=== PATIENT | male | born 1960 | race Caucasian/White ===

== ENCOUNTER 2016-09-17 02:18 | Emergency (ER) | payer OTHER ==
[~2016-09-17] VITALS: Ht 182.9 cm; Wt 108.9 kg
[~2016-09-17 02:18] MED LIST: ASPI-247; CAR125T; LISI-708; [UNRECOGNIZED DRUG - CODE]
[2016-09-17] MEDS ORDERED: PROMETHAZINE HCL 25 MG/ML 1ML IV ONE (03:00)
[2016-09-17 03:24] LABS: Basophils # (auto) 0.1 uL; Basophils % (auto) 0.6 % (0.0-2.0); DEFINITIVE VIEW TRANSMISSION; Eosinophils # (auto) 0.1 uL; Eosinophils % (auto) 0.6 % (0.0-7.0); Hemoglobin 15.9 g/dL (13.5-17.5); Lymphocytes # (auto) 1.7 uL; Lymphocytes % (auto) 14.4 % (10.0-50.0); Mean Corpuscular Hgb Conc. 31.1 g/dL (32.0-36.0); Mean Corpuscular Volume 86.7 fL (80.0-100.0); Mean Platelet Volume 8.9 fL (7.4-10.4); Monocytes # (auto) 1.4 uL; Monocytes % (auto) 11.7 % (0.0-12.0); Neutrophils # (auto) 8.6 uL; Neutrophils % (auto) 72.7 % (37.0-80.0); Platelet Count (auto) 399 10^3/uL (140-450); Red Cell Distribution Width 16.6 % (11.6-16.0); White Blood Cell 11.8 10^3/uL (4.4-10.8)
[2016-09-17 03:28] LABS: Albumin 3.4 g/dL (3.4-5.0); BUN/Creatinine Ratio 9.7; Calcium 8.7 mg/dL (8.5-10.1); Magnesium 2.2 mg/dL (1.6-2.6); Potassium 5.5 mmol/L (3.5-5.1)
[2016-09-17 03:31] LABS: Bilirubin, Total 2.5 mg/dL (0.2-1.0); Total Protein 6.3 g/dL (6.4-8.2)
[2016-09-17 03:45] LABS: B-Type Natriuretic Peptide 2463.38 pg/mL (0-100); Temperature: 22.7 C (20.0-25.0)
[2016-09-17] MEDS ORDERED: LORazepam 2MG/ML-1ML VIAL IV ONE (04:15)
[2016-09-17] MEDS ORDERED: FUROSEMIDE 20 MG/2 ML VIAL IV ONE (04:15)
[2016-09-17] MEDS ORDERED: SODIUM CHLORIDE 0.9% 500 ML IV ONE (04:18)
[2016-09-17] MEDS ORDERED: CALCIUM GLUC 4.65 MEQ/10ML 4.65 MEQ in SODIUM CHL 0.9% 50 ML IV ONE (05:00)
[2016-09-17] MEDS ORDERED: InsuLIN REG 1unit/0.01ml Soln (100units/ml) IV ONE (05:00)
[2016-09-17] MEDS ORDERED: DEXTROSE (50%) 50ML SYRG IV ONE ×2 (05:00→05:15)
[2016-09-17] MEDS ORDERED: SODIUM BICARBONATE 8.4% INJ 50ML SYRINGE IV ONE (05:00)
[2016-09-17] MEDS ORDERED: CALCIUM GLUC 4.65 MEQ/10ML IV ONE (05:10)
[2016-09-17] MEDS ORDERED: DEXTROSE 10% 1,000 ML IV ONE (05:15)
[2016-09-17 05:24] LABS: Lactic Acid 5.1 mmol/L (0.4-2.0)
[2016-09-17 05:27] LABS: REFLEX LACTIC ACID YES OR NO YES
[2016-09-17 05:30] LABS: Urine Bilirubin Negative (Negative); Urine Blood Negative /uL (Negative); Urine Color Yellow (Yellow); Urine Glucose Normal (Normal); Urine Hyaline Cast MANY /lpf (0 - 2); Urine Ketone Negative (Negative); Urine Nitrite Negative (Negative); Urine RBC 1 /hpf (0 - 3); Urine Squamous Epithelial Cell FEW /hpf (<5)
[2016-09-17 05:35] LABS: INR > 10 (0.9-1.15)
[2016-09-17] MEDS ORDERED: PIPERACILLIN-TAZOB 3.375GM 100 ML IV ONE (05:45)
[2016-09-17] MEDS ORDERED: PHYTONADIONE (VIT K)10 MG/ML 1ML VIAL SUBCUT ONE (05:45)
[2016-09-17] MEDS ORDERED: metroNIDAZOLE 500MG/100ML 100 ML IV ONE (05:45)
[2016-09-17 07:06] LABS: REFLEX LACTIC ACID YES OR NO NO
[2016-09-17 07:10] VITALS: BP 121/92
== END 2016-09-17 07:38 | disposition short-term general hospital (02) ==
LOC: EDBD 02:18 → ER 02:20
DX: I11.0 Hypertensive heart disease with heart failure (principal); I50.9 Heart failure, unspecified; I48.91 Unspecified atrial fibrillation; M10.9 Gout, unspecified; A41.9 Sepsis, unspecified organism; E87.5 Hyperkalemia
CPT/HCPCS: 36415; 36600; 51702; 71010; 80053; 80320; 81001; 82805; 82962; 83605; 83735; 83880; 84132; 84484; 85025; 85379; 85610; 87040; 93005; 94761; 96361; 96365; 96367; 96372; 96375; 96376; 99285; G0434; J0610; J1815; J1940; J2060; J2550; J3430; J3490; J7040; J7042

== ENCOUNTER → 2020-05-25 09:48 | Emergency (ER) | payer OTHER ==
[~2020-05-25] VITALS: Ht 188 cm; Wt 117.9 kg
[~2020-05-25 09:48] MED LIST changes: +AMIODARONE 450mg/250ml AE 250 ML IV SCH; +AMIODARONE HCL 150 MG in D5W 5% 100 ML IV ONE; +ASPirin 81 mg TAB PO ONE; +MORPHINE SULFATE 4 MG/ML SYR/VIAL IV ONE; +ONDA8MIS3; +ONDANSETRON HCL 4 MG/2 ML VIAL IV ONE; +SODIUM CHLORIDE 0.9% 1,000 ML IV ONE; +THIAMINE 100mg/ml INJ (200mg/2ml VIAL) IV ONE; -[UNRECOGNIZED DRUG - CODE]
[2020-05-25 10:45] LABS: Basophils # (auto) 0 10 ^3/uL (0-0.2); Basophils % (auto) 0.2 % (0.0-2.0); Eosinophils # (auto) 0 10 ^3/uL (0-0.8); Eosinophils % (auto) 0.1 % (0.0-7.0); Hematocrit 51.6 % (41.0-53.0); Hemoglobin 17.6 g/dL (13.5-17.5); Lymphocytes # (auto) 0.3 10 ^3/uL (0.4-5.4); Lymphocytes % (auto) 3.9 % (10.0-50.0); Mean Corpuscular Hemoglobin 33.6 pg (28.0-32.0); Mean Corpuscular Hgb Conc. 34.1 g/dL (32.0-36.0); Mean Corpuscular Volume 98.8 fL (80.0-100.0); Monocytes # (auto) 0.6 10 ^3/uL (0-1.3); Neutrophils # (auto) 7.8 10 ^3/uL (1.6-8.6); Neutrophils % (auto) 88.8 % (37.0-80.0); Platelet Count (auto) 129 10^3/uL (140-450); Red Blood Cells 5.23 10^6/uL (4.5-5.90); Red Cell Distribution Width 17.6 % (11.8-14.3); White Blood Cell 8.7 10^3/uL (4.4-10.8)
[2020-05-25 11:04] LABS: INR 1.03 (0.9-1.15); Partial Thromboplastin Time 29.3 sec (23.0-31.2)
[2020-05-25 11:17] LABS: Albumin 4.8 g/dL (3.4-5.0); Anion Gap 10 (5-15); Blood Alcohol < 3.0 mg/dL (0-5); Blood Urea Nitrogen 10 mg/dL (7-18); Calcium 9.6 mg/dL (8.5-10.1); Carbon Dioxide 23 mmol/L (21-32); Chloride 103 mmol/L (98-107); Glucose 93 mg/dL (74-106); Sodium 136 mmol/L (136-145)
[2020-05-25 11:23] LABS: Alanine Aminotransferase 27 U/L (16-61); Alkaline Phosphatase 127 U/L (45-117); Aspartate Aminotransferase 33 U/L (15-37); BUN/Creatinine Ratio 7.8; Bilirubin, Total 3.4 mg/dL (0.2-1.0); GFR African American 74 mL/min; GFR Non-African American 61 mL/min
[2020-05-25 11:52] LABS: Urine Bacteria NONE SEEN /hpf (None Seen); Urine Blood Negative /uL (Negative); Urine Hyaline Cast MANY /lpf (0 - 2); Urine Mucus FEW (None Seen); Urine Specific Gravity 1.011 (1.001-1.035); Urine WBC 2 /hpf (0 - 3)
[2020-05-25 11:53] LABS: Amphetamine Screen, Urine NEGATIVE (NEGATIVE); Barbiturate Scree,Urine NEGATIVE (NEGATIVE); Benzodiazephine Screen, Urine NEGATIVE (NEGATIVE); Cannabinoid Screen, Urine NEGATIVE (NEGATIVE); Cocaine Screen, Urine NEGATIVE (NEGATIVE); Opiate Scree,Urine NEGATIVE (NEGATIVE); Phencyclidine Screen, Urine NEGATIVE (NEGATIVE)
[2020-05-25 17:01] VITALS: BP 129/102
== END | disposition short-term general hospital (02) ==
LOC: ER 09:48 → EDBD 09:48 → EDUNIT# 09:48
DX: I48.91 Unspecified atrial fibrillation (principal); I10 Essential (primary) hypertension; M10.9 Gout, unspecified
CPT/HCPCS: 36415; 71045; 80053; 80307; 80320; 81001; 83880; 84443; 84484; 85025; 85610; 85730; 96361; 96365; 96375; 99291; J0282; J2405; J3411; J7030; J7060